=== PATIENT | male | born 2005 | race Caucasian/White ===

== ENCOUNTER 2025-02-17 09:10 | Emergency (ER) | payer OTHER ==
[~2025-02-17] VITALS: Ht 180.3 cm; Wt 65.8 kg
[2025-02-17 10:13] VITALS: BP 140/100
== END 2025-02-17 10:47 | disposition home or self-care (01) ==
LOC: ER 09:10
DX: S21.242A Puncture wound with foreign body of left back wall of thorax without penetration into thoracic cavity, initial encounter (principal); W45.3XXA Fishing hook entering through skin, initial encounter; Z59.89 Other problems related to housing and economic circumstances
CPT/HCPCS: 10120; 99283-25